=== PATIENT | female | born 1935 | race Caucasian/White ===

== ENCOUNTER 2016-12-27 14:20 | Observation (INO) | payer OTHER, MEDICARE ==
[~2016-12-27] VITALS: Ht 152.4 cm; Wt 69.0 kg
[~2016-12-27 14:20] MED LIST: ACCOLATE20 MG PO; ALBUTEROL17 G1 IH; ASPIR-LOW81 MG PO; ASPIRIN81 M1 PO; COUMADIN1 MG PO; COUMADIN2 MG PO; DYAZIDE, MA1 CAPSULE PO; FLEXERIL5 MG PO; GABAPENTIN100 M1 PO; KAPIDEX60 MG PO; LEVSIN0.125 MG PO; LIBRAX CAPSULE1 EACH PO; LIBRAX, CLI1 CAPSULE PO; LIPITOR20 MG PO; LIPITOR40 MG PO; LOPRESSOR25 MG PO; METOPROLOL SUCC50 MG PO; MIRALAX17 GM PO; MOBIC7.5 MG PO; NEURONTIN400 MG PO; OXYCODONE5 MG PO; PRILOSEC20 MG PO; PRINIVIL10 MG PO; PROAIR HFA8.5 GM IH; PULMICORT0.5 MG/21 IH; SINGULAIR10 MG PO; TUDORZA PRESS400 MCG IH; TUMS500 MG PO; TYLENOL EXTRA500 MG PO; ZESTRIL,PRINIVI10 MG PO; ZESTRIL40 MG PO
[2016-12-27 15:23] LABS: BASOPHIL COUNT 0.1 K/uL (0-0.1); EOSINOPHIL (%) 4.9 % (0-5); EOSINOPHIL COUNT 0.5 K/uL (0-0.3); HEMATOCRIT 42.8 % (36.0-46.0); IMMATURE GRANULOCYTE (%) 0.2 % (0.0-0.7); INSTRUMENT ABS NEUTROPHIL CT 6.1 K/uL; LYMPHOCYTE COUNT 1.7 K/uL (1.0-2.8); MCH 24.3 PG (29.0-34.0); MCHC 30.4 G/DL (30.0-36.0); MEAN PLAT.VOLUME 10.5 uM^3 (9.5-12.4); MONOCYTE (%) 9.9 % (3-12); MONOCYTE COUNT 0.9 K/uL (0-0.8); NEUTROPHIL (%) 65.9 % (45-76); NEUTROPHIL COUNT 6.1 K/uL (1.8-6.4); PLATELET COUNT 162 K/uL (156-360); RBC DIS.WIDTH-CV 19.1 % (11.8-14.6); RBC DIS.WIDTH-SD 53.8 % (39-53); RED BLOOD COUNT 5.35 M/uL (3.80-5.20); WHITE BLOOD COUNT 9.2 K/uL (4.1-10.2)
[2016-12-27 15:38] LABS: CHLORIDE 107 mEq/L (99-109); INTER. NORMALIZED RATIO 1.4; POTASSIUM 4.1 mEq/L (3.7-5.4); PROTHROMBIN TIME 15.4 SEC (10.2-12.9); SODIUM 144 mEq/L (136-147)
[2016-12-27 15:40] LABS: GLUCOSE 97 mg/dL (70-99)
[2016-12-27 15:41] LABS: ANION GAP 10 MEQ/L (2-14)
[2016-12-27 15:42] LABS: TOTAL BILIRUBIN 0.9 mg/dL (0.0-1.0)
[2016-12-27 15:43] LABS: ALKALINE PHOSPHATASE 99 IU/L (3-129)
[2016-12-27 15:44] LABS: GFR ESTIMATE (CALCULATED) > 59 mL/min/; TROP-I INTERPRETATION NEGATIVE; TROPONIN-I 0.06 ng/mL (0.0-0.30)
[2016-12-27 15:45] LABS: UREA NITROGEN (BUN) 14 mg/dL (9-23)
[2016-12-27] MEDS ORDERED: LOPRESSOR25 MG PO (16:38)
[2016-12-27] MEDS ORDERED: VITAMIN D22000 UNIT PO (16:40)
[2016-12-27] MEDS ORDERED: COZAAR100 MG PO (16:40)
[2016-12-27] MEDS ORDERED: ZEGERID40 MG PO (16:40)
[2016-12-27] MEDS ORDERED: BIOTIN1000 MICRO PO (16:40)
[2016-12-27 21:02] VITALS: BP 142/72
[2016-12-27 21:29] LABS: TROP-I INTERPRETATION NEGATIVE; TROPONIN-I 0.09 ng/mL (0.0-0.30)
[2016-12-28 00:30] VITALS: BP 107/57
[2016-12-28 03:23] VITALS: BP 127/60
[2016-12-28 06:01] LABS: INTER. NORMALIZED RATIO 1.5; PROTHROMBIN TIME 16.9 SEC (10.2-12.9)
[2016-12-28 06:24] LABS: TROP-I INTERPRETATION NEGATIVE; TROPONIN-I 0.08 ng/mL (0.0-0.30)
[2016-12-28 07:01] VITALS: BP 117/56
[2016-12-28 08:41] LABS: METH RESISTANT S AUREUS PCR NEGATIVE (NEGATIVE)
[2016-12-28 08:42] LABS: PROBE CHECK PASS; SPECIMEN PROCESSING CONTROL PASS
[2016-12-28 11:43] VITALS: BP 118/63
[2016-12-28 15:17] VITALS: BP 124/72
== END 2016-12-28 16:58 | disposition home health service (06) ==
LOC: EME 14:20 → EDOF 17:12 → 4EAST 17:12 → ENRESERV 17:21 → 4EAST 20:39
PROVIDERS: Emergency Medicine; Internal Medicine
DX: I11.0 Hypertensive heart disease with heart failure (principal); I50.33 Acute on chronic diastolic (congestive) heart failure; I44.7 Left bundle-branch block, unspecified; I35.0 Nonrheumatic aortic (valve) stenosis; J44.9 Chronic obstructive pulmonary disease, unspecified; E78.5 Hyperlipidemia, unspecified; E89.0 Postprocedural hypothyroidism; K21.9 Gastro-esophageal reflux disease without esophagitis; M79.7 Fibromyalgia; Z95.3 Presence of xenogenic heart valve; Z86.73 Personal history of transient ischemic attack (TIA), and cerebral infarction without residual deficits; Z79.01 Long term (current) use of anticoagulants; Z79.82 Long term (current) use of aspirin; Z87.891 Personal history of nicotine dependence; Z90.49 Acquired absence of other specified parts of digestive tract; Z60.2 Problems related to living alone
CPT/HCPCS: 71020; 80053; 83880; 84484; 85025; 85610; 85730; 87641; 90686; 93005; 93306; 94799; 99281; 99285; G0378; J1940